=== PATIENT | female | born 1955 | race American Indian/Alaskan Native ===

== ENCOUNTER 2020-01-26 10:11 | Emergency (ER) | payer MEDICARE, MEDICAID ==
[2020-01-26 10:21] VITALS: BP 198/96
[2020-01-26] MEDS ORDERED: IBUPROFEN 800 MG TAB PO ONE (11:04)
[2020-01-26] MEDS ORDERED: AMOXICILLIN 500 MG CAP PO ONE (11:04)
--- NOTE | 2020-01-26 11:04 | Emergency Department Report ---
ED ENT HPI - General Chief complaint: Dental/Oral Stated complaint: TOOTH PAIN Time Seen by Provider: 01/26/20 11:02 Source: patient Mode of arrival: Ambulatory Limitations: No Limitations - History of Present Illness Initial comments: Patient is a 64-year-old female that comes to the ER with right maxillary dental pain. She has no abscess. ABCs are intact. There is no trismus. No drooling. Patient is able to take p.o. She has not seen her dentist. She did not take anything for pain prior to arrival. Patient is ambulatory, non-ill and nontoxic in the ER. Patient was admitted to [facility] on not MSD to DMD -given her age and concerns for abscess. -: Gradual, days(s) Severity: mild Consistency: constant Improves with: none Worsens with: none Associated Symptoms: toothache. denies: fever, cough, gum swelling, pain with swallowing, sore throat, tinnitus, hearing loss, discharge from ear, rhinorrhea - Related Data Previous Rx's Medication Instructions Recorded Last Taken Type Amoxicillin [Trimox CAP] 500 mg PO BID #20 capsule 01/26/20 Unknown Rx Allergies Allergy/AdvReac Type Severity Reaction Status Date / Time No Known Allergies Allergy Unverified 01/26/20 10:16 ED Dental HPI - General Chief complaint: Dental/Oral Stated complaint: TOOTH PAIN Time Seen by Provider: 01/26/20 11:02 Source: patient Mode of arrival: Ambulatory Limitations: No Limitations - Related Data Previous Rx's Medication Instructions Recorded Last Taken Type Amoxicillin [Trimox CAP] 500 mg PO BID #20 capsule 01/26/20 Unknown Rx Allergies Allergy/AdvReac Type Severity Reaction Status Date / Time No Known Allergies Allergy Unverified 01/26/20 10:16 ED Review of Systems ROS: Stated complaint: TOOTH PAIN Other details as noted in HPI Comment: All other systems reviewed and negative ED Past Medical Hx - Past Medical History Previous Medical History?: Yes Hx Hypertension: Yes Hx Diabetes: Yes - Surgical History Past Surgical History?: Yes Additional Surgical History: eye surgery - Family History Family history: no significant - Social History Smoking Status: Former Smoker Substance Use Type: None - Medications Home Medications: Home Medications Medication Instructions Recorded Confirmed Last Taken Type Amoxicillin [Trimox CAP] 500 mg PO BID #20 capsule 01/26/20 Unknown Rx ED Physical Exam - General Limitations: No Limitations General appearance: alert, in no apparent distress - Head Head exam: Present: atraumatic, normocephalic - Eye Eye exam: Present: normal appearance - ENT ENT exam: Present: mucous membranes moist - Expanded ENT Exam Expanded Mouth exam: Present: normal external inspection. Absent: drooling, trismus, muffled voice, tongue normal, tongue elevation Teeth exam: Present: dental caries 1 - Other (pain) - Neck Neck exam: Present: normal inspection - Respiratory Respiratory exam: Present: normal lung sounds bilaterally. Absent: respiratory distress - Cardiovascular Cardiovascular Exam: Present: regular rate (90), normal rhythm. Absent: systolic murmur, diastolic murmur, rubs, gallop - GI/Abdominal GI/Abdominal exam: Present: soft, normal bowel sounds - Extremities Exam Extremities exam: Present: normal inspection - Back Exam Back exam: Present: normal inspection - Neurological Exam Neurological exam: Present: alert, oriented X3 - Psychiatric Psychiatric exam: Present: normal affect, normal mood - Skin Skin exam: Present: warm, dry, intact, normal color. Absent: rash ED Course Vital Signs 01/26/20 01/26/20 10:16 11:14 Temperature 98.9 F Pulse Rate 102 H Respiratory 18 14 Rate Blood Pressure 198/96 O2 Sat by Pulse 98 Oximetry ED Medical Decision Making - Medical Decision Making Vital Signs 01/26/20 10:16 Temperature 98.9 F Pulse Rate 102 H Respiratory 18 Rate Blood Pressure 198/96 O2 Sat by Pulse 98 Oximetry Patient is in no acute distress with no fever. No chills. Patient has no trismus, she is controlling secretions, no drooling. Patient is taking p.o. Patient medicated in the ER and discharged home with her caregiver. Patient is to follow-up with a dentist. Patient verbalizes understanding. Caregiver was given written instructions. Referrals provided. - Differential Diagnosis simple dental Critical care attestation.: If time is entered above; I have spent that time in minutes in the direct care of this critically ill patient, excluding procedure time. ED Disposition Clinical Impression: Pain, dental Disposition: DC-01 TO HOME OR SELFCARE Is pt being admited?: No Does the pt Need Aspirin: No Condition: Stable Additional Instructions: see dentist tuyet referrals below med as ordered today Prescriptions: Amoxicillin [Trimox CAP] 500 mg PO BID #20 capsule Referrals: RADHA EDWARDS MD [Staff Physician] - 3-5 Days Time of Disposition: 11:03
== END 2020-01-26 11:15 | disposition home or self-care (01) ==
LOC: ED 10:11
DX: K08.89 Other specified disorders of teeth and supporting structures (principal); I10 Essential (primary) hypertension; E11.9 Type 2 diabetes mellitus without complications; Z87.891 Personal history of nicotine dependence; Z79.899 Other long term (current) drug therapy; Z98.890 Other specified postprocedural states
CPT/HCPCS: 99282